=== PATIENT | male | born 1990 | race Two or more races ===

== ENCOUNTER 2019-11-03 01:44 | Emergency (ER) | payer OTHER ==
--- NOTE | 2019-11-03 02:42 | EDM.PDOC ---
ED HPI GENERAL MEDICAL PROBLEM - General Chief Complaint: ENT Problem Stated Complaint: TOOTH PAIN Time Seen by Provider: 11/03/19 02:27 Source of Information: Reports: Patient History Limitations: Reports: No Limitations - History of Present Illness INITIAL COMMENTS - FREE TEXT/NARRATIVE: This is a 29-year-old male. He complains of right lower molar pain for about the last week. He has been using Anbesol and Orajel that seemed to help and then 2 days ago he started having increased pain. He does complain of some mild swelling in that right lower jaw area. He denies any fever or chills denies any cough or congestion. He does have an appointment with a dentist on Tuesday. He denies any other acute symptoms. Right Lower Tooth/Teeth Pain Score (Numeric/FACES): 10 - Related Data Allergies Allergy/AdvReac Type Severity Reaction Status Date / Time No Known Allergies Allergy Verified 11/03/19 02:17 Past Medical History - Past Health History Medical/Surgical History: Denies Medical/Surgical History Social & Family History - Tobacco Use Smoking Status *Q: Current Every Day Smoker Years of Tobacco use: 15 Packs/Tins Daily: 0.3 ED ROS ENT - Review of Systems Review Of Systems: See Below Constitutional: Denies: Fever, Chills HEENT: Reports: Dental Pain Respiratory: Denies: Shortness of Breath, Cough Cardiovascular: Reports: No Symptoms Endocrine: Reports: No Symptoms GI/Abdominal: Denies: Abdominal Pain, Diarrhea, Nausea, Vomiting : Reports: No Symptoms Musculoskeletal: Reports: No Symptoms Skin: Reports: No Symptoms Neurological: Reports: No Symptoms Psychiatric: Reports: No Symptoms Hematologic/Lymphatic: Reports: No Symptoms ED EXAM, ENT - Physical Exam Exam: See Below Exam Limited By: No Limitations General Appearance: Alert, WD/WN, No Apparent Distress Eye Exam: Bilateral Eye: Normal Inspection Ears: Normal External Exam, Normal Canal, Normal TMs Nose: Normal Inspection Mouth/Throat: Normal Inspection, Normal Gums, Normal Lips, Normal Oropharynx, Other (Is back to molars on the right side do have amalgams. There does not appear to be any drainage from the teeth. The gums themselves are minimally inflamed and there is no obvious swelling noted. Palpation of the right facial area compared to the left reveals minimal swelling. When I gently touch the teeth with a tongue blade they do not appear to be tender.) Head: Normocephalic Neck: Supple, Other (No lymphadenopathy at the angle of the jaws) Respiratory/Chest: No Respiratory Distress Back: Full Range of Motion Extremities: Normal Inspection, Normal Range of Motion Neurological: Alert, Oriented Psychiatric: Normal Affect, Normal Mood Skin: Warm, Dry Course - Vital Signs Last Recorded V/S: Last Vital Signs Temp 97.8 F 11/03/19 02:14 Pulse 75 11/03/19 02:14 Resp 16 11/03/19 02:14 BP 122/94 H 11/03/19 02:14 Pulse Ox 100 11/03/19 02:14 Departure - Departure Time of Disposition: 02:41 Disposition: Home, Self-Care 01 Condition: Good Clinical Impression: Dental infection, Pain, dental - Discharge Information *PRESCRIPTION DRUG MONITORING PROGRAM REVIEWED*: No *COPY OF PRESCRIPTION DRUG MONITORING REPORT IN PATIENT SCOTT: No Instructions: Acute Pain, Adult Referrals: PCP,Not In Area [Primary Care Provider] - Forms: ED Department Discharge Additional Instructions: Make sure you stop at the [facility] in the lobby and get the penicillin VK for the infection and the tramadol for the pain, consider using heat to the side of the face to help with the soreness, if the tramadol does not seem to help with the pain efficiently you can try a 500 mg Tylenol and 200 mg Motrin taken together is supposed to be as effective as an oxycodone, if that does not work then [facility] might have to offer, make sure you follow-up with your dentist on Tuesday for x-rays of your teeth and repair if needed, return to the ER if needed Sepsis Event Note (ED) - Evaluation Sepsis Screening Result: No Definite Risk - Focused Exam Vital Signs: Vital Signs Temp Pulse Resp BP Pulse Ox 11/03/19 02:14 97.8 F 75 16 122/94 H 100
== END 2019-11-03 03:00 | disposition home or self-care (01) ==
LOC: JD.ED 01:44
DX: K04.7 Periapical abscess without sinus (principal); F17.210 Nicotine dependence, cigarettes, uncomplicated
CPT/HCPCS: 99282

== ENCOUNTER 2020-11-28 08:58 | Emergency (ER) | payer OTHER ==
--- NOTE | 2020-11-28 09:31 | EDM.PDOC ---
ED HPI GENERAL MEDICAL PROBLEM <Baldev Israel - Last Filed: 11/28/20 10:11> - General Source of Information: Reports: Patient History Limitations: Reports: No Limitations Left Head Pain Score (Numeric/FACES): 2 <Gurvinder Lomax - Last Filed: 11/28/20 10:54> - General Chief Complaint: Head Injury Stated Complaint: HEAD INJURY AT WORK Time Seen by Provider: 11/28/20 09:15 - History of Present Illness INITIAL COMMENTS - FREE TEXT/NARRATIVE: Mr. Ritter is a very pleasant 30-year-old gentleman who now presents the ED stating that he was struck on the left side of his head by a metal beam while at work around 05:00 yesterday morning, , 11/27/2020. He was not knocked unconscious or knocked down, and he did not suffer a laceration to his scalp, however, he states that he anticipated that he would develop a headache, therefore took some Excedrin, then, around 09:00, did develop a headache, felt across his entire head, therefore took some additional Excedrin. He states that he continued to work for a couple more hours, then went home to rest. He states that his headache resolved around 17:00. He states that when he woke up around 03:00 this morning in order to get ready to go to work, he felt lightheaded for 10 to 15 minutes. He states that he also has a slight headache this morning. He also reports having brief blurry vision. No nausea. Other than the head injury, he is otherwise uninjured. Here in the ED, the patient is found to be hemodynamically stable, afebrile, saturating 99% on room air. He appears to be comfortable, in no acute distress. He was able to recount his entire history without difficulty. Prior to yesterday morning's injury, the patient denies having a recent fever, chills, sore throat, ear pain, nasal or sinus congestion, cough, dyspnea, chest pain, palpitations, nausea, vomiting, constipation, diarrhea, abdominal pain, urinary symptoms, recent weight gain or weight loss, recent bloody bowel movements or black bowel movements, recent joint aches, headaches, or rashes. The patient's PCP is Dr. Ainsley Pearce at the [facility]. He has received 2 COVID vaccinations. (Gurvinder Lomax) - Related Data Allergies Allergy/AdvReac Type Severity Reaction Status Date / Time No Known Allergies Allergy Verified 11/28/20 09:13 Home Meds: Home Meds Venlafaxine [Effexor] 25 mg PO DAILY 11/28/20 [History] Past Medical History Cardiovascular History: Reports: High Cholesterol Musculoskeletal History: Reports: Other (See Below) (Dislocated left hip x 1) Psychiatric History: Reports: PTSD - Past Surgical History HEENT Surgical History: Reports: Oral Surgery (dental extraction) <Gurvinder Lomax - Last Filed: 11/28/20 10:54> Social & Family History - Tobacco Use Tobacco Use Status *Q: Current Every Day Tobacco User Years of Tobacco use: 10 Packs/Tins Daily: 1 Tobacco Use Comment: Started smoking 2010 - Caffeine Use Caffeine Use: Reports: Coffee, Energy Drinks - Alcohol Use Alcohol Use History: Yes Alcohol Use Frequency: Socially (occasionally to excess) - Recreational Drug Use Recreational Drug Use: No - Living Situation & Occupation Living situation: Reports: , with Spouse, with Family (1 daughter) Occupation: Employed ([employer]) <Gurvinder Lomax - Last Filed: 11/28/20 10:54> ED ROS GENERAL - Review of Systems Review Of Systems: Comprehensive ROS is negative, except as noted in HPI. <Gurvinder Lomax - Last Filed: 11/28/20 10:54> ED EXAM, HEAD INJURY - Physical Exam Exam: See Below Exam Limited By: No Limitations General Appearance: Alert, WD/WN, No Apparent Distress Head: Normocephalic, Other (Approximately 1.5 cm linear discoloration (scratch?) to the left side of the patient's scalp, with no associated swelling, erythema, or ecchymosis. Mild tenderness to palpation of the area. No underlying bony abnormality.) Eyes: Bilateral Eye: EOMI, Normal Inspection, PERRL Ears: Normal External Exam, Normal Canal, Hearing Grossly Normal, Normal TMs Nose: Normal Inspection, Normal Mucousa, No Blood Throat/Mouth: Normal Inspection, Normal Lips, Normal Teeth, Normal Gums, Normal Oropharynx, Normal Voice, No Airway Compromise Neck: Non-Tender, Full Range of Motion, Normal Alignment, Normal Inspection Respiratory: No Respiratory Distress, Lungs Clear, Normal Breath Sounds, No Accessory Muscle Use Cardiovascular: Normal Peripheral Pulses, Regular Rate, Rhythm, No Edema, No Gallop, No JVD, No Murmur, No Rub GI/Abdominal Exam: Normal Bowel Sounds, Soft, Non-Tender, No Organomegaly, No Distention, No Abnormal Bruit, No Mass Back Exam: Full Range of Motion, Normal Inspection, NT Extremities: Normal Inspection, Normal Range of Motion, No Pedal Edema, Normal Capillary Refill Neurologic: education analyst II-XII nml As Tested, No Motor/Sensory Deficits, Alert, Oriented x 3 Skin: Normal Color, Warm/Dry <Gurvinder Lomax - Last Filed: 11/28/20 10:54> Course <Baldev Israel - Last Filed: 11/28/20 10:11> <Gurvinder Lomax - Last Filed: 11/28/20 10:54> - Vital Signs Last Recorded V/S: Last Vital Signs Temp 36.7 C 11/28/20 09:12 Pulse 99 11/28/20 09:12 Resp 18 11/28/20 09:12 BP 107/88 11/28/20 09:12 Pulse Ox 99 11/28/20 09:12 - Re-Assessments/Exams Free Text/Narrative Re-Assessment/Exam: 11/28/20 10:11. Have assumed care from Dr Lomax at change of shift. I agree with his hx and exam as documented. Discharge instr. as documented. (Baldev Israel) 11/28/20 09:28 Given the mechanism of injury, the minimal findings on the left side of the patient's scalp, and his normal neurologic examination, I am not recommending a CT of the head. The patient is in agreement. I have ordered orthostatics, given the patient's report of lightheadedness, but I do not see an indication for any other tests at this time. (Gurvinder Lomax) Departure - Departure Time of Disposition: 10:11 Condition: Fair <Baldev Israel - Last Filed: 11/28/20 10:11> <Gurvinder Lomax - Last Filed: 11/28/20 10:54> - Departure Disposition: Home, Self-Care 01 Clinical Impression: Concussion injury of brain - Discharge Information Instructions: Concussion, Adult, [id number] Referrals: Skager,Ainsley, MD [Primary Care Provider] - Forms: ED Department Discharge Additional Instructions: The treatment for mild concussion is primarily rest and time. Avoid exertional activity this next 2 to 3 days. Tylenol or ibuprofen as needed. Return to ED as needed if symptoms worsening in any way. Sepsis Event Note (ED) - Focused Exam Vital Signs: Vital Signs Temp Pulse Resp BP Pulse Ox 11/28/20 09:12 36.7 C 99 18 107/88 99
== END 2020-11-28 10:36 | disposition home or self-care (01) ==
LOC: JD.ED 08:58
DX: S06.0X0A Concussion without loss of consciousness, initial encounter (principal); Z72.0 Tobacco use; W22.09XA Striking against other stationary object, initial encounter; Y99.0 Civilian activity done for income or pay
CPT/HCPCS: 99283